=== PATIENT | female | born 1970 | race Caucasian/White ===

== ENCOUNTER 2018-04-06 16:27 | Emergency (ER) | payer BC ==
[~2018-04-06] VITALS: Ht 162.6 cm; Wt 72.6 kg
[2018-04-06] MEDS ORDERED: NAPROSYN500 MG PO (17:11)
[2018-04-06] MEDS ORDERED: ROBAXIN 750 MG750 M1 PO (17:11)
[2018-04-06 17:19] VITALS: BP 112/82
== END 2018-04-06 17:19 | disposition home or self-care (01) ==
LOC: M.ERS 16:27
DX: M25.552 Pain in left hip (principal)

== ENCOUNTER → 2018-10-01 | Outpatient (CLI) | payer BC ==
[~2018-10-01] MED LIST: NAPROSYN500 MG PO; ROBAXIN 750 MG750 M1 PO
--- NOTE | ~2018-10-01 | PF ---
[address] [address] PULMONARY FUNCTION REPORT Name: FRANKLYNKAYLEIGH Room: [facility]#: [id number] Admission: 10/01/18 Attend Phys: Ezekiel Fulton Discharge: Date of : 72 Report #: [id number] THIS REPORT FOR: //name// CC: DR HOWIE Biswas DATE OF SERVICE: 10/01/2018 ATTENDING PHYSICIAN: Dr. Biswas. DATE OF READING TESTS: 10/04/2018. Spirometry is within normal limits. No improvement after single dose of inhaled bronchodilator. FEV1 is 3.1, 108% predicted. FVC is 3.8, 107% of predicted. Ratio is normal at 81%, mid flow rates are normal. Lung volumes performed via plethysmography were within normal limits. Diffusion is within normal limits. IMPRESSION: Normal ventilatory studies. By: [id number] 110Kareem Shipley MD /nt
== END ==
LOC: M.PUL 09-17 14:00
DX: R05 Cough (principal)

== ENCOUNTER 2020-02-27 12:27 | Emergency (ER) | payer BC ==
[~2020-02-27] VITALS: Ht 162.6 cm; Wt 69.8 kg
[2020-02-27] MEDS ORDERED: MEDROLDOSEPACK PO (12:50)
[2020-02-27] MEDS ORDERED: AMOXICILLIN 50500 M1 PO (12:50)
[2020-02-27] MEDS ORDERED: FLONASE ALLERG9.9 ML NASAL (12:52)
[2020-02-27 13:15] VITALS: BP 121/70
== END 2020-02-27 13:21 | disposition home or self-care (01) ==
LOC: M.ERS 12:27
DX: J01.90 Acute sinusitis, unspecified (principal); J30.2 Other seasonal allergic rhinitis

== ENCOUNTER 2020-04-19 12:10 | Emergency (ER) | payer BC ==
[~2020-04-19] VITALS: Ht 162.6 cm; Wt 71.2 kg
[~2020-04-19 12:10] MED LIST changes: +AMOXICILLIN 50500 M1 PO; +FLONASE ALLERG9.9 ML NASAL; +MEDROLDOSEPACK PO
[2020-04-19 12:17] VITALS: BP 139/74
[2020-04-19] MEDS ORDERED: KEFLEX500 M1 PO (12:48)
[2020-04-19] MEDS ORDERED: CENTANY30 GM TOP (12:48)
== END 2020-04-19 12:54 | disposition home or self-care (01) ==
LOC: M.ERS 12:10
DX: S91.312A Laceration without foreign body, left foot, initial encounter (principal); L03.116 Cellulitis of left lower limb; W31.89XA Contact with other specified machinery, initial encounter; Y93.89 Activity, other specified; Y92.89 Other specified places as the place of occurrence of the external cause; Y99.8 Other external cause status

== ENCOUNTER 2020-09-18 15:16 | Emergency (ER) | payer BC ==
[~2020-09-18] VITALS: Ht 162.6 cm; Wt 73.5 kg
[~2020-09-18 15:16] MED LIST changes: +CENTANY30 GM TOP; +KEFLEX500 M1 PO
[2020-09-18 15:52] LABS: ABSOLUTE EOSINOPHILS 0.1 thou/uL (0.0-0.7); ABSOLUTE LYMPHOCYTES 2.3 thou/uL (0.8-5.3); ABSOLUTE MONOCYTES 0.6 thou/uL (0.0-1.2); ABSOLUTE NEUTROPHILS 6.5 thou/uL (1.6-8.1); BASOPHILS 0.3 %; EOSINOPHILS 1.4 %; HEMATOCRIT 38.4 % (37.0-47.0); HEMOGLOBIN 13.2 gm/dL (12.0-15.0); LYMPHOCYTES 23.9 %; MCHC 34.3 g/dL (28.0-37.0); MCV 87.5 fL (80.0-100.0); MONOCYTES 6.5 %; MPV 8.9 fl. (7.2-11.1); NUCLEATED RBCS 0 /100WBC; PLATELET COUNT* 214 thou/uL (150-400); POLYS 67.9 %; RBC 4.39 mil/uL (4.20-5.00); RDW-CV 12.9 % (10.5-14.5); WBC 9.5 thou/uL (4.0-11.0)
[2020-09-18 16:05] LABS: APTT 27.2 Seconds (25.0-31.3); PROTIME 10.7 Seconds (9.20-11.50)
[2020-09-18 16:06] LABS: CALCIUM 8.3 mg/dL (8.5-10.1); CREATININE 0.7 mg/dL (0.6-1.3); POTASSIUM 3.5 mmol/L (3.5-5.1)
[2020-09-18 16:21] LABS: ALBUMIN 3.5 g/dL (3.4-5.0); CK-MB MASS 1.5 ng/mL (<0.5-3.6); MAGNESIUM 1.8 mg/dL (1.8-2.4); TOTAL BILIRUBIN 0.5 mg/dL (<0.1-1.0); TOTAL PROTEIN 7.2 g/dL (6.4-8.2)
[2020-09-18] MEDS ORDERED: FLEXERIL PO (16:32)
[2020-09-18] MEDS ORDERED: NORCO 5-325 TA1 EAC2 PO (16:32)
[2020-09-18 16:48] VITALS: BP 123/81
--- NOTE | 2020-09-19 18:20 | EKG ---
[place] [address] ELECTROCARDIOGRAM REPORT Name: KAYLEIGH ESTES Room: [facility]#: [id number] Admission: 09/18/20 Attend Phys: Discharge: 09/18/20 Date of : 72 Date of Service: 09/18/20 1526 Report #: [id number] THIS REPORT FOR: //name// [facility] ED Test Date: 2020-09-18 Test Time: 15:26:36 Pat Name: KAYLEIGH ESTES Department: Room: Gender: F [employer] Equipment Operator: [facility] : 1970 Requested By: Eric Wright Order Number: [id number] MD: Hussain Albert Measurements Intervals [place] Rate: 79 P: 28 AR: 142 QRS: 51 QRSD: 92 T: 11 QT: 370 QTc: 425 Interpretive Statements Sinus rhythm Compared to ECG 09/22/2007 14:00:42 No significant changes Electronically Signed On 09-19-2020 18:20:13 RN [facility] by Hussain Albert [email or web address] <ELECTRONICALLY SIGNED> By: Radha Albert MD, [facility] 09/19/20 1820 152 152 Radha Albert MD, [facility] /EPI
== END 2020-09-18 16:49 | disposition home or self-care (01) ==
LOC: M.ERS 15:16
PROVIDERS: Family Medicine
DX: M54.9 Dorsalgia, unspecified (principal); R07.89 Other chest pain; Z98.890 Other specified postprocedural states; X50.1XXA Overexertion from prolonged static or awkward postures, initial encounter; Y93.89 Activity, other specified; Y92.89 Other specified places as the place of occurrence of the external cause; Y99.8 Other external cause status

== ENCOUNTER 2021-10-06 15:07 | Emergency (ER) | payer OTHER ==
[~2021-10-06] VITALS: Ht 162.6 cm; Wt 71.2 kg
[~2021-10-06 15:07] MED LIST changes: +FLEXERIL PO; +NORCO 5-325 TA1 EAC2 PO
[2021-10-06 15:12] VITALS: BP 150/96
[2021-10-06] MEDS ORDERED: LIPITOR 20 MG T20 M1 PO (15:16)
== END 2021-10-06 17:10 | disposition home or self-care (01) ==
LOC: M.ERS 15:07
DX: R42 Dizziness and giddiness (principal); Z20.822 Contact with and (suspected) exposure to COVID-19; R11.10 Vomiting, unspecified; Z79.899 Other long term (current) drug therapy; Z98.890 Other specified postprocedural states